=== PATIENT | female | born 1950 | race Caucasian/White ===

== ENCOUNTER 2022-04-23 18:55 | Inpatient (IN) | payer MEDICARE, MEDICAID ==
[~2022-04-23] VITALS: Ht 162.6 cm; Wt 61.2 kg
[2022-04-23] MEDS ORDERED: LABETALOL HCL 5 MG/ML 4ML SYRINGE IV ONE ×3 (20:00→22:00)
[2022-04-23 20:20] LABS: Basophils # (auto) 0.1 10 ^3/uL (0-0.2); Basophils % (auto) 0.8 % (0.0-2.0); Eosinophils # (auto) 0.1 10 ^3/uL (0-0.8); Eosinophils % (auto) 1.6 % (0.0-7.0); Hematocrit 43.5 % (36.0-46.0); Hemoglobin 14.7 g/dL (12.2-16.2); Lymphocytes # (auto) 1.6 10 ^3/uL (0.4-5.4); Lymphocytes % (auto) 18.1 % (10.0-50.0); Mean Corpuscular Hemoglobin 29.4 pg (28.0-32.0); Mean Corpuscular Hgb Conc. 33.8 g/dL (32.0-36.0); Mean Corpuscular Volume 87.1 fL (80.0-100.0); Monocytes # (auto) 0.6 10 ^3/uL (0-1.3); Monocytes % (auto) 6.5 % (0.0-12.0); Neutrophils # (auto) 6.4 10 ^3/uL (1.6-8.6); White Blood Cell 8.8 10^3/uL (4.4-10.8)
[2022-04-23 20:42] LABS: Albumin 3.8 g/dL (3.4-5.0); BUN/Creatinine Ratio 13.1; Calcium 9.7 mg/dL (8.5-10.1); Magnesium 2.3 mg/dL (1.6-2.6); Potassium 3.6 mmol/L (3.5-5.1)
[2022-04-23 20:45] LABS: Bilirubin, Total 0.4 mg/dL (0.2-1.0)
[2022-04-24] MEDS ORDERED: hydrALAZINE HCL 20 MG/ML VL IV ONE
[2022-04-24 02:05] LABS: Urine Bacteria MOD /hpf (None Seen); Urine Blood Negative /uL (Negative); Urine Hyaline Cast FEW /lpf (0 - 2); Urine Specific Gravity 1.012 (1.001-1.035); Urine WBC 6 /hpf (0 - 5)
[2022-04-24] MEDS ORDERED: TEMAZEPAM 15 MG CAP PO PRN (04:45)
[2022-04-24] MEDS ORDERED: NITROGLYCERIN 0.4 MG SL TAB SL PRN (04:45)
[2022-04-24] MEDS ORDERED: ONDANSETRON HCL 4 MG/2 ML VIAL IV PRN (04:45)
[2022-04-24] MEDS ORDERED: ACETAMINOPHEN 325 MG TAB PO PRN (04:45)
[2022-04-24] MEDS ORDERED: MORPHINE SULFATE INJ 2 MG/ml SYRG IV PRN (04:45)
[2022-04-24] MEDS: hydrALAZINE HCL 25 MG TAB PO SCH ×2 (05:53→14:37)
[2022-04-24] MEDS ORDERED: cefTRIAXone 1GM/50ML D5W 50 ML IV SCH (09:00)
[2022-04-24] MEDS ORDERED: PANTOPRAZOLE 40 MG TAB PO SCH (10:00)
[2022-04-24] MEDS ORDERED: ASPirin 81 mg TAB PO SCH (10:00)
[2022-04-24] MEDS ORDERED: amLODIPine BESYLATE 5 MG TAB PO SCH (10:00)
[2022-04-24] MEDS ORDERED: ENOXAPARIN SOD 40 MG/0.4 ML SYRINGE SC SCH (10:00)
[2022-04-24] MEDS: cloNIDine HCL 0.1 MG TAB PO PRN ×2 (11:05→16:59)
[2022-04-24] MEDS ORDERED: SACU1TAB7 PO (16:18)
[2022-04-24] MEDS ORDERED: CARV25TA55 PO (16:18)
[2022-04-24] MEDS ORDERED: NIFE90TA49 PO (16:18)
[2022-04-24 17:26] VITALS: BP 163/78
[2022-04-24] MEDS ORDERED: ATORVASTATIN 20 MG TAB PO SCH (22:00)
[2022-04-25] MEDS ORDERED: amLODIPine BESYLATE 5 MG TAB PO SCH (10:00)
== END 2022-04-24 17:10 | disposition left against medical advice (07) | DRG 199 ==
LOC: ER 18:55 → TELE 04-24 04:49 → TELE-CENTR 04-24 13:14
PROVIDERS: ADMIT Nurse Practitioner; ATTEND Nurse Practitioner Acute Care
DX: I16.1 Hypertensive emergency (principal); N17.9 Acute kidney failure, unspecified; N30.90 Cystitis, unspecified without hematuria; I10 Essential (primary) hypertension; Z53.29 Procedure and treatment not carried out because of patient's decision for other reasons; Z20.822 Contact with and (suspected) exposure to COVID-19; Z91.14 Patient's other noncompliance with medication regimen; Z86.73 Personal history of transient ischemic attack (TIA), and cerebral infarction without residual deficits; Z88.7 Allergy status to serum and vaccine
CPT/HCPCS: 36415; 70450; 71045; 80053; 81001; 83735; 83880; 84484; 85025; 87426; 93005; 96365; 96372; G0378; J0696; J3490

== ENCOUNTER → 2022-05-01 | Outpatient (CLI) | payer MEDICARE, MEDICAID ==
[~2022-05-01] MED LIST: CARV25TA55 PO; NIFE90TA49 PO; SACU1TAB7 PO
== END | disposition home or self-care (01) ==
LOC: Rad HDHVI 09:03
PROVIDERS: ATTEND Internal Medicine Cardiovascular Disease
DX: I07.1 Rheumatic tricuspid insufficiency (principal); I11.9 Hypertensive heart disease without heart failure
CPT/HCPCS: 93306

== ENCOUNTER → 2022-05-17 | Outpatient (CLI) | payer MEDICARE, MEDICAID ==
[2022-05-17 08:55] VITALS: BP 93/53
[2022-05-17 09:30] VITALS: BP 111/71
== END | disposition home or self-care (01) ==
LOC: Rad HDHVI 08:45
PROVIDERS: ATTEND Internal Medicine Cardiovascular Disease
DX: K80.20 Calculus of gallbladder without cholecystitis without obstruction (principal); I70.1 Atherosclerosis of renal artery; I10 Essential (primary) hypertension; M47.819 Spondylosis without myelopathy or radiculopathy, site unspecified
CPT/HCPCS: 74175; G0463; Q9967

== ENCOUNTER 2022-06-28 07:28 | Inpatient (IN) | payer MEDICARE, MEDICAID ==
[~2022-06-28] VITALS: Ht 154.9 cm; Wt 60.0 kg
[~2022-06-28 07:28] MED LIST changes: -NIFE90TA49 PO; +NIFE90TA75 PO
[2022-06-28 08:33] LABS: Basophils # (auto) 0 10 ^3/uL (0-0.2); Basophils % (auto) 0.6 % (0.0-2.0); Eosinophils # (auto) 0 10 ^3/uL (0-0.8); Eosinophils % (auto) 0.6 % (0.0-7.0); Hematocrit 42.6 % (36.0-46.0); Hemoglobin 13.9 g/dL (12.2-16.2); Lymphocytes # (auto) 0.9 10 ^3/uL (0.4-5.4); Lymphocytes % (auto) 15.2 % (10.0-50.0); Mean Corpuscular Hgb Conc. 32.8 g/dL (32.0-36.0); Mean Corpuscular Volume 88.7 fL (80.0-100.0); Monocytes # (auto) 0.4 10 ^3/uL (0-1.3); Monocytes % (auto) 5.9 % (0.0-12.0); Neutrophils # (auto) 4.8 10 ^3/uL (1.6-8.6); Neutrophils % (auto) 77.7 % (37.0-80.0); Red Cell Distribution Width 14.7 % (11.8-14.3); White Blood Cell 6.2 10^3/uL (4.4-10.8)
[2022-06-28 08:56] LABS: Potassium 3.7 mmol/L (3.5-5.1)
[2022-06-28 09:00] LABS: Urine Amorphous Crystal FEW /hpf (None Seen); Urine Bacteria FEW /hpf (None Seen); Urine Blood Negative /uL (Negative); Urine Mucus FEW (None Seen); Urine Specific Gravity 1.016 (1.001-1.035); Urine WBC 65 /hpf (0 - 5)
[2022-06-28 09:03] LABS: Albumin 3.7 g/dL (3.4-5.0); BUN/Creatinine Ratio 10.3 (10.0-20.0); Bilirubin, Total 0.5 mg/dL (0.2-1.0); Calcium 9.3 mg/dL (8.5-10.1); Total Protein 6.9 g/dL (6.4-8.2)
[2022-06-28 09:12] LABS: INR 0.95 (0.9-1.15)
[2022-06-28] MEDS ORDERED: levoFLOXacin 500MG 100 ML IV ONE (11:30)
[2022-06-28] MEDS ORDERED: ACETAMINOPHEN 500 MG TAB PO ONE (11:30)
[2022-06-28] MEDS ORDERED: PHEN95TA10 PO (12:26)
[2022-06-28] MEDS ORDERED: NITR-87 PO (12:26)
[2022-06-28] MEDS ORDERED: NITROGLYCERIN 0.4 MG SL TAB SL PRN (14:15)
[2022-06-28] MEDS ORDERED: ACETAMINOPHEN 325 MG TAB PO PRN (14:15)
[2022-06-28] MEDS ORDERED: MORPHINE SULFATE INJ 2 MG/ml SYRG IV PRN ×2 (14:15)
[2022-06-28] MEDS ORDERED: HYDROcodone-ACET 5/325MG TAB PO PRN (14:15)
[2022-06-28] MEDS ORDERED: AMLO1TAB22 PO (14:18)
[2022-06-28] MEDS ORDERED: HYDR25TA5 PO (14:18)
[2022-06-28] MEDS ORDERED: hydrALAZINE HCL 20 MG/ML VL IV PRN (14:45)
[2022-06-28] MEDS: CARVEDILOL 12.5 MG TAB PO SCH (23:29)
[2022-06-28] MEDS: HCTZ 25 MG TAB PO SCH (23:30)
[2022-06-28] MEDS: SODIUM CHLORIDE 0.9% 1,000 ML IV SCH (23:30)
[2022-06-29 03:21] LABS: Basophils # (auto) 0 10 ^3/uL (0-0.2); Basophils % (auto) 0.6 % (0.0-2.0); Eosinophils # (auto) 0.1 10 ^3/uL (0-0.8); Eosinophils % (auto) 1.7 % (0.0-7.0); Hemoglobin 12.2 g/dL (12.2-16.2); Lymphocytes # (auto) 1.3 10 ^3/uL (0.4-5.4); Lymphocytes % (auto) 15.6 % (10.0-50.0); Mean Corpuscular Hemoglobin 30.4 pg (28.0-32.0); Mean Corpuscular Hgb Conc. 34.8 g/dL (32.0-36.0); Mean Corpuscular Volume 87.2 fL (80.0-100.0); Monocytes # (auto) 0.7 10 ^3/uL (0-1.3); Monocytes % (auto) 8.4 % (0.0-12.0); Neutrophils # (auto) 6.1 10 ^3/uL (1.6-8.6); Neutrophils % (auto) 73.7 % (37.0-80.0); Red Blood Cells 4.01 10^6/uL (4.0-5.20); Red Cell Distribution Width 14.4 % (11.8-14.3); White Blood Cell 8.2 10^3/uL (4.4-10.8)
[2022-06-29 03:48] LABS: Albumin 2.8 g/dL (3.4-5.0); Calcium 8.9 mg/dL (8.5-10.1); Potassium 3.6 mmol/L (3.5-5.1)
[2022-06-29 04:03] LABS: Bilirubin, Total 0.5 mg/dL (0.2-1.0)
[2022-06-29] MEDS: SODIUM CHLORIDE 0.9% 1,000 ML IV SCH ×2 (04:05→11:30)
[2022-06-29] MEDS: cefTRIAXone 1GM/50ML D5W 50 ML IV SCH (09:23)
[2022-06-29] MEDS: HCTZ 25 MG TAB PO SCH ×2 (09:32→22:06)
[2022-06-29] MEDS: CARVEDILOL 12.5 MG TAB PO SCH ×2 (09:33→22:00)
[2022-06-29] MEDS: amLODIPine BESYLATE 5 MG TAB PO SCH (09:33)
[2022-06-29] MEDS: PANTOPRAZOLE 40 MG TAB PO SCH (09:33)
[2022-06-29 12:45] VITALS: BP 133/81
[2022-06-29 22:00] VITALS: BP 125/83
[2022-06-30] MEDS: SODIUM CHLORIDE 0.9% 1,000 ML IV SCH ×4 (00:50→21:40)
[2022-06-30 05:00] VITALS: BP 128/75
[2022-06-30 08:44] VITALS: BP 145/88
[2022-06-30] MEDS: CARVEDILOL 12.5 MG TAB PO SCH (10:57)
[2022-06-30] MEDS: cefTRIAXone 1GM/50ML D5W 50 ML IV SCH (10:58)
[2022-06-30] MEDS: amLODIPine BESYLATE 5 MG TAB PO SCH (10:59)
[2022-06-30] MEDS: HCTZ 25 MG TAB PO SCH ×2 (10:59→21:43)
[2022-06-30] MEDS: PANTOPRAZOLE 40 MG TAB PO SCH (10:59)
[2022-06-30 12:44] VITALS: BP 157/94
[2022-06-30] MEDS ORDERED: ALPRAZolam 0.5 MG TAB PO PRN (16:30)
[2022-06-30 16:34] VITALS: BP 140/90
[2022-06-30] MEDS ORDERED: DOCUSATE SOD 100 MG CAP PO PRN (19:45)
[2022-06-30] MEDS: cloNIDine HCL 0.1 MG TAB PO SCH (21:42)
[2022-06-30 22:00] VITALS: BP 140/92
[2022-06-30] MEDS ORDERED: ALPRAZolam 0.5 MG TAB PO SCH (22:00)
[2022-07-01] MEDS: SODIUM CHLORIDE 0.9% 1,000 ML IV SCH ×2 (03:30→09:36)
[2022-07-01 05:00] VITALS: BP 139/89
[2022-07-01 08:30] VITALS: BP 127/89
[2022-07-01] MEDS: cefTRIAXone 1GM/50ML D5W 50 ML IV SCH (09:00)
[2022-07-01] MEDS: PANTOPRAZOLE 40 MG TAB PO SCH (09:33)
[2022-07-01] MEDS: amLODIPine BESYLATE 5 MG TAB PO SCH (09:35)
[2022-07-01] MEDS: HCTZ 25 MG TAB PO SCH (09:35)
[2022-07-01] MEDS: cloNIDine HCL 0.1 MG TAB PO SCH (09:35)
== END 2022-07-01 12:17 | disposition left against medical advice (07) ==
LOC: ER 07:28 → EDBD 07:28 → EDSEX 07:28 → OVERFLOW 14:18 → WEST WING 06-29 10:13
PROVIDERS: ADMIT Nurse Practitioner Family; ATTEND Family Medicine
DX: K80.20 Calculus of gallbladder without cholecystitis without obstruction (principal); N17.0 Acute kidney failure with tubular necrosis; G93.41 Metabolic encephalopathy; E86.0 Dehydration; N30.00 Acute cystitis without hematuria; I16.0 Hypertensive urgency; I10 Essential (primary) hypertension; Z53.29 Procedure and treatment not carried out because of patient's decision for other reasons; I69.354 Hemiplegia and hemiparesis following cerebral infarction affecting left non-dominant side; Z91.148 Patient's other noncompliance with medication regimen for other reason; Z91.81 History of falling; Z91.013 Allergy to seafood
CPT/HCPCS: 36415; 71045; 71250; 74176; 80053; 81001; 83690; 83880; 84484; 85025; 85379; 85610; 85730; 87040; 87086; 93005; 96365; 97163; G0378; J0696; J1956